=== PATIENT | male | born 1985 | race Two or more races ===

== ENCOUNTER 2017-01-24 14:35 | Emergency (ER) | payer MEDICAID ==
[~2017-01-24] VITALS: Ht 177.8 cm; Wt 104.3 kg
--- NOTE | 2017-01-24 14:35 | NUR ---
URINARY RETENTION X 12 HRS, PAIN DURING URINATION. AWAITING MD ORDER
[2017-01-24 15:08] LABS: BASOPHILS # (AUTO) 0.1 /CMM (0.0-0.2); BASOPHILS % (AUTO) 0.8 % (0.0-2.0); EOSINOPHILS # (AUTO) 0.1 /CMM (0.0-0.7); HEMATOCRIT 46 % (39-51); HEMOGLOBIN 15.2 g/dL (13.5-17.5); LYMPHOCYTES # (AUTO) 2.2 /CMM (0.8-4.8); LYMPHOCYTES % (AUTO) 29.4 % (20.0-44.0); MEAN CORPUSCULAR HEMOGLOBIN 29 PG (26.0-33.0); MEAN CORPUSCULAR HGB CONC 33 g/dl (31.0-36.0); MEAN CORPUSCULAR VOLUME 86 fL (80-96); MONOCYTES # (AUTO) 0.7 /CMM (0.1-1.30); MONOCYTES % (AUTO) 9.5 % (2.0-12.0); NEUTROPHILS # (AUTO) 4.5 /CMM (1.8-8.9); NEUTROPHILS % (AUTO) 59.3 % (43.0-81.0); PLATELET COUNT (AUTO) 280 /CMM (150-450); RDW COEFFICIENT OF VARIATION 14.7 (11.5-15.0); WHITE BLOOD COUNT (AUTO) 7.6 K/uL (4.3-11.0)
[2017-01-24] MEDS ORDERED: LIDOCAINE 2% JEL UROJET 10 ML MM ONE (15:08)
[2017-01-24] MEDS ORDERED: TAMSULOSIN 0.4 MG CAP.SR.24H ONE (15:08)
[2017-01-24 15:18] LABS: CALCIUM, SERUM 8.8 mg/dL (8.5-10.1); POTASSIUM 3.5 mmol/L (3.5-5.1)
[2017-01-24] MEDS: TAMSULOSIN 0.4 MG CAP.SR.24H PO ONE (15:22)
[2017-01-24] MEDS: LIDOCAINE 2% JEL UROJET 10 ML MM ONE (15:22)
[2017-01-24 15:35] LABS: APPEARANCE,URINE Slightly Cloudy (CLEAR); BILIRUBIN,URINE MODERATE (NEGATIVE); BLOOD, URINE Small Ery/uL (NEGATIVE); COLOR,URINE Yellow (YELLOW); KETONES,URINE 80 (NEGATIVE); LEUKOCYTE ESTERASE ,URINE Negative (NEGATIVE); NITRITE, URINE Negative (NEGATIVE); PH,URINE 5.5 (5.0-8.0); PROTEIN,URINE Trace mg/dl (NEGATIVE); UGLUCOSE Negative (NEGATIVE); UROBILINOGEN,URINE 0.2 EU/dL (0.2)
--- NOTE | 2017-01-24 15:35 | NUR ---
LEFT MESSAGE WITH [employer] MA[employer]
--- NOTE | 2017-01-24 15:46 | NUR ---
PINKY AT BEDSIDE FOR PSYCH EVAL
[2017-01-24 15:49] LABS: BACTERIA,URINE Rare /HPF (None Seen); WBC,URINE 0-2 /HPF (0-3)
[2017-01-24 15:50] LABS: SQUAMOUS EPITHELIAL CELL,UR Few /HPF (None Seen)
--- NOTE | 2017-01-24 16:57 | NUR ---
CALLED [facility] FOR S TRANSPORT. SPOKE WITH JASWINDER. ETA 1800. TRIP#[phone].
--- NOTE | 2017-01-24 17:13 | NUR ---
GAVE REPORT TO LAURENT KWON AT [facility] [phone] TRANSFER ADMITTING DX MAJOR DEPRESSION ON 515 HOLD SI . PICKED UP 6PM AMBULANCE
[2017-01-24 17:15] VITALS: BP 140/85
[2017-01-24] MEDS: ACETAMINOPHEN 325 MG TABLET PO ONE (17:38)
[2017-01-24] MEDS ORDERED: ACETAMINOPHEN 325 MG TABLET ONE (17:39)
--- NOTE | 2017-01-24 19:05 | NUR ---
REPORT RECEIVED FROM DOYLE RESENDIZ FOR [facility].
== END 2017-01-24 19:17 ==
LOC: ER 14:38
DX: F15.10 Other stimulant abuse, uncomplicated (principal); R45.851 Suicidal ideations; F17.200 Nicotine dependence, unspecified, uncomplicated; Z59.0 Homelessness
CPT/HCPCS: 36415; 80048-TC; 80305; 81000-TC; 85025-TC; A4606; G0480; J3490; Z7610